=== PATIENT | female | born 1935 | race Caucasian/White ===

== ENCOUNTER 2018-04-13 00:56 | Emergency (ER) | payer OTHER ==
[~2018-04-13] VITALS: Ht 154.9 cm; Wt 31.8 kg
[2018-04-13] MEDS ORDERED: NOREPINEPHRINE 8 MG/250ML KIT 250 ML IV ONE (01:02)
[2018-04-13 01:09] VITALS: BP 82/54
[2018-04-13] MEDS ORDERED: EPINEPHrine HCL 250 ML IV ONE (01:17)
== END 2018-04-13 03:12 ==
LOC: EDBD 00:56 → EDSEX 00:56 → ER 00:56
DX: I46.9 Cardiac arrest, cause unspecified (principal); I50.9 Heart failure, unspecified; J44.9 Chronic obstructive pulmonary disease, unspecified; I25.2 Old myocardial infarction; Z87.440 Personal history of urinary (tract) infections
CPT/HCPCS: 92950; 93005; 99285; J0171; 94002